=== PATIENT | male | born 1955 | race Caucasian/White ===

== ENCOUNTER → 2020-04-17 | Outpatient (CLI) | payer MEDICAID, MEDICARE ==
[~2020-04-17] MED LIST: Iron PO; SOTA120T26 PO; TRAZ150T62 PO
== END | disposition home or self-care (01) ==
LOC: STAR 09:02
PROVIDERS: ATTEND Specialist
DX: Z01.818 Encounter for other preprocedural examination (principal); Z11.59 Encounter for screening for other viral diseases
CPT/HCPCS: 36415; 87635; 93005

== ENCOUNTER 2020-04-21 08:00 | Observation (INO) | payer MEDICARE ==
[~2020-04-21] VITALS: Ht 177.8 cm; Wt 109.9 kg
[~2020-04-21 08:00] MED LIST changes: +BACITRACIN OINT 500U/GM, 15 GM ONE; +LIDOCAINE 1%-EPI 1:100K, 20ML ONE; +MINERAL OIL 10 ML VIAL MC ONE
[2020-04-21] MEDS ORDERED: LACTATED RINGERS 1,000 ML IV SCH (08:43)
[2020-04-21 08:45] VITALS: BP 135/85
[2020-04-21] MEDS ORDERED: CHLORHEXIDINE 15 ML UDC MM ONE (09:00)
[2020-04-21] MEDS ORDERED: FENTANYL PF 250 MCG/5ML ONE (10:13)
[2020-04-21] MEDS ORDERED: MIDAZOLAM 1 MG/ML, 2ML ONE (10:13)
[2020-04-21] MEDS ORDERED: DEXAMETHASONE 4 MG/ML, 1ML ONE ×2 (11:20→11:23)
[2020-04-21] MEDS ORDERED: CEFAZOLIN 1,000 MG ONE ×2 (11:23)
[2020-04-21] MEDS ORDERED: PROPOFOL 10 MG/ML, 20ML ONE (14:07)
[2020-04-21] MEDS ORDERED: ONDANSETRON 2MG/ML, 2ML ONE ×2 (14:07→17:09)
[2020-04-21] MEDS ORDERED: ROCURONIUM 10MG/ML,5ML ONE (14:08)
[2020-04-21] MEDS ORDERED: OXYcodone 5 MG/5 ML ORAL.SOL UDC ONE (14:56)
[2020-04-21] MEDS ORDERED: HYDROmorphone 2 MG/ML, 1ML ONE (14:56)
[2020-04-21] MEDS ORDERED: ONDANSETRON 2MG/ML, 2ML IVPush PRN (15:00)
[2020-04-21] MEDS ORDERED: OXYcodone 5 MG/5 ML ORAL.SOL UDC PO PRN (15:00)
[2020-04-21] MEDS: HYDROmorphone 1 MG/ML, 1ML INJ IVPush PRN ×3 (15:00→15:30)
[2020-04-21] MEDS ORDERED: PROMETHAZINE 25 MG/ML, 1ML IVPush PRN (15:00)
[2020-04-21] MEDS ORDERED: FENTANYL PF 100 MCG/2ML IV PRN (15:00)
[2020-04-21] MEDS ORDERED: LABETALOL 5MG/ML, 20ML IV PRN (15:00)
[2020-04-21] MEDS ORDERED: hydrALAzine 20 MG/ML, 1ML IV PRN (15:00)
[2020-04-21] MEDS ORDERED: MEPERIDINE/PF 25MG/0.5ML IVPush PRN (15:00)
[2020-04-21] MEDS ORDERED: ACETAMINOPHEN 325 MG TABLET PO PRN (15:00)
[2020-04-21] MEDS ORDERED: FENTANYL PF 100 MCG/2ML ONE (15:31)
[2020-04-21 16:22] VITALS: BP 133/88
[2020-04-21] MEDS ORDERED: ONDANSETRON 2MG/ML, 2ML IV ONE (17:30)
[2020-04-21] MEDS: SOTALOL 120MG TABLET PO SCH (18:36)
[2020-04-21 19:35] VITALS: BP 146/81
[2020-04-21] MEDS: morphine SULFATE 10 MG/ML, 1ML IV PRN (19:44)
[2020-04-21] MEDS ORDERED: ACETAMINOPHEN 500 MG TABLET ONE (23:23)
[2020-04-21] MEDS ORDERED: PROMETHAZINE 25 MG/ML, 1ML IM PRN (23:30)
[2020-04-21] MEDS ORDERED: ACETAMINOPHEN 500 MG TABLET PO PRN (23:30)
[2020-04-22] MEDS: morphine SULFATE 10 MG/ML, 1ML IV PRN (01:18)
[2020-04-22 02:32] VITALS: BP 118/74
[2020-04-22] MEDS: SOTALOL 120MG TABLET PO SCH (05:51)
[2020-04-22] MEDS ORDERED: LACTATED RINGERS 1,000 ML IV SCH (08:43)
[2020-04-22 09:45] VITALS: BP 132/69
[2020-04-22 13:18] VITALS: BP 103/64
[2020-04-22] MEDS ORDERED: HYDR-3653 PO (14:49)
[2020-04-22] MEDS ORDERED: ONDA4TAB7 PO (14:50)
== END 2020-04-22 15:34 | disposition home or self-care (01) ==
LOC: OUT 08:00 → 5SO 16:06 → OUT 17:13 → 5SO 17:13
PROVIDERS: ADMIT Specialist; ATTEND Specialist
DX: C43.39 Malignant melanoma of other parts of face (principal); R59.0 Localized enlarged lymph nodes; I48.20 Chronic atrial fibrillation, unspecified; Z85.820 Personal history of malignant melanoma of skin
CPT/HCPCS: 11644; 15120; 38724; 81210; 88305; 88307; 88341; 88342; 96374; 96375; 96376; G0378; J0690; J1100; J1170; J2250; J2270; J2405; J2704; J3010; J3490; J7120

== ENCOUNTER 2020-06-17 11:00 | Day surgery (SDC) | payer MEDICARE ==
[~2020-06-17] VITALS: Ht 180.3 cm; Wt 101.7 kg
[~2020-06-17 11:00] MED LIST changes: -BACITRACIN OINT 500U/GM, 15 GM ONE; +HYDR-3653 PO; -LIDOCAINE 1%-EPI 1:100K, 20ML ONE; -MINERAL OIL 10 ML VIAL MC ONE; +ONDA4TAB7 PO
[2020-06-17 11:51] VITALS: BP 138/87
[2020-06-17] MEDS ORDERED: FENTANYL PF 100 MCG/2ML ONE (12:58)
[2020-06-17] MEDS ORDERED: NALOXONE 1 MG/ML, 2ML ONE (12:58)
[2020-06-17] MEDS ORDERED: FLUMAZENIL 0.1 MG/1 ML, 5ML ONE (12:58)
[2020-06-17] MEDS ORDERED: MIDAZOLAM 1 MG/ML, 5ML ONE (12:58)
[2020-06-17] MEDS ORDERED: LIDOCAINE 1%, 10ML ONE (13:46)
== END 2020-06-17 15:15 | disposition home or self-care (01) ==
LOC: OUT 11:00
PROVIDERS: ATTEND Specialist
DX: C43.39 Malignant melanoma of other parts of face (principal); C77.0 Secondary and unspecified malignant neoplasm of lymph nodes of head, face and neck; I48.91 Unspecified atrial fibrillation; G47.30 Sleep apnea, unspecified; F12.10 Cannabis abuse, uncomplicated; Z79.899 Other long term (current) drug therapy; Z95.0 Presence of cardiac pacemaker; Z98.890 Other specified postprocedural states
CPT/HCPCS: 38505; 74150; 76942; 88305; 88341; 88342; 99156; J2250; J3010; J2310